=== PATIENT | male | born 1945 | race Caucasian/White ===

== ENCOUNTER 2022-11-03 10:56 | Emergency (ER) | payer MEDICARE, OTHER, SELFPAY ==
[2022-11-03] VITALS (9 sets, daily range): BP systolic 106–168; BP diastolic 63–88; PULSE 56–64; RESP 14–34; TEMP 36.7; O2SAT 95–99; BMI 25.0
--- NOTE | 2022-11-03 | DI.RAD.S_ITS ---
PROCEDURE: XR SACRUM COCCYX MIN 2V INDICATIONS: GLF TECHNIQUE: 3 views of the sacrum and coccyx acquired. COMPARISON: None. FINDINGS: Bones: No fractures or dislocations. No suspicious bony lesions. Soft tissues: Visualized bowel gas pattern is normal. No suspicious soft tissue densities. IMPRESSION: No displaced fracture. Dictated by: Rogelio Boss M.D. on 11/03/2022 at 11:12 Approved by: Rogelio Boss M.D. on 11/03/2022 at 11:17
--- NOTE | 2022-11-03 11:19 | DI.RAD.S_ITS ---
PROCEDURE: XR CHEST 1V INDICATIONS: chest pain TECHNIQUE: One view of the chest was acquired. COMPARISON: None. FINDINGS: Surgical changes and devices: Cardiac monitoring device overlies left chest. Surgical clips overlie the gastroesophageal junction Lungs and pleura: Lungs are clear. No pleural effusions or pneumothorax. Mediastinum: Mediastinal contours appear normal. Cardiomegaly. Bones and chest wall: No suspicious bony lesions. Overlying soft tissues appear unremarkable. Deformities of the posterior right 4th, 5th and 6th ribs without significant displacement. IMPRESSION: Rib fractures of unknown chronicity of the right 4th through 6th posterior ribs. No pneumothorax. Cardiomegaly. Dictated by: Rogelio Boss M.D. on 11/03/2022 at 11:09 Approved by: Rogelio Boss M.D. on 11/03/2022 at 11:11
--- NOTE | 2022-11-03 11:20 | DI.CT.S_ITS ---
PROCEDURE: CT CERVICAL SPINE WO CON INDICATIONS: modified trauma / ground level fall TECHNIQUE: Noncontrast 3 mm thick sections acquired from the skull base to the T4 level. Sagittal and coronal reformats were then constructed. For radiation dose reduction, the following was used: automated exposure control, adjustment of mA and/or kV according to patient size. COMPARISON: None. FINDINGS: Image quality: Excellent. Bones: No fractures or dislocations. Visualized superior ribs are intact. Postsurgical fixation of the right C3 through C7. Soft tissues: Prevertebral soft tissues are normal in thickness. No paravertebral hematomas. No apical pneumothoraces. Aortic ectasia measuring 3.7 cm. IMPRESSION: No cervical fracture. Mild aortic ectasia. Dictated by: Rogelio Boss M.D. on 11/03/2022 at 11:06 Approved by: Rogelio Boss M.D. on 11/03/2022 at 11:08
--- NOTE | 2022-11-03 11:20 | DI.CT.S_ITS ---
PROCEDURE: CT HEAD/BRAIN WO CON INDICATIONS: modified trauma/ ground level fall TECHNIQUE: Noncontrast 4.5 mm thick angled axial sections acquired from the foramen magnum to the vertex, with coronal and sagittal reformats. For radiation dose reduction, the following was used: automated exposure control, adjustment of mA and/or kV according to patient size. COMPARISON: None. FINDINGS: Image quality: Excellent. CSF spaces: Basal cisterns are patent. No extra-axial fluid collections. Mild expansion of the CSF containing spaces without evidence of obstruction. Brain: No midline shift. No intracranial masses or hemorrhage. Pitts-white matter interface is normal. Diffuse parenchymal volume loss with periventricular white matter hypodensities consistent with chronic microvascular ischemic disease. Skull and face: Calvarium and visualized facial bones are intact, without suspicious lesions. Small superficial contusion above the right supraorbital skull Sinuses: Visualized sinuses and mastoids are clear. IMPRESSION: No intracranial hemorrhage. Sequela of chronic microvascular ischemic disease. Dictated by: Rogelio Boss M.D. on 11/03/2022 at 11:03 Approved by: Rogelio Boss M.D. on 11/03/2022 at 11:05
[2022-11-03 11:41] LABS: Add Manual Diff / Slide Review NO; Basophils Absolute Auto 0 /uL (0-100); Basophils Percent Auto 0.6 % (0-2); Eosinophils Absolute Auto 200 /uL (0-450); Eosinophils Percent Auto 4.7 % (2-4); Hematocrit 37.2 % (41-53); Hemoglobin 12.9 g/dL (13.5-17.5); Lymphocytes Absolute Auto 700 /uL (1100-4500); Lymphocytes Percent Auto 14.4 % (25-40); Mean Corpuscular HGB Conc 34.6 % (30-36); Mean Corpuscular Hemoglobin 32.5 PG (26-34); Mean Corpuscular Volume 93.8 fL (80-100); Monocytes Absolute Auto 600 /uL (0-900); Monocytes Percent Auto 12.7 % (3-14); Neutrophils Absolute Auto 3400 /uL (1500-7000); Neutrophils Percent Auto 67.6 % (50-75); Platelet Count 176 X10^3/uL (150-400); Red Blood Cell Count 3.96 X10^6/uL (4.5-5.9); Red Cell Distribution Width 13.1 % (11.6-14.8); White Blood Cell Count 5.1 X10^3/uL (4.5-11.0)
[2022-11-03 11:44] LABS: INR 1.1 (0.9-1.3); Prothrombin Time 12.1 SECONDS (10.1-12.7)
[2022-11-03 11:47] LABS: PTT Partial Thromboplastin Tim 24 SECONDS (26-36)
[2022-11-03 11:48] LABS: Alanine Aminotransferase 25 IU/L (<50); Albumin 4.1 g/dL (3.5-5.0); Albumin Globulin Ratio 1.4 (1.0-2.8); Alkaline Phosphatase 69 U/L (38-126); Aspartate Aminotransferase 36 IU/L (17-59); BUN Creatinine Ratio 18.7 (6-22); Bilirubin Total 0.5 mg/dL (0.2-1.3); Blood Urea Nitrogen 14 mg/dL (9-20); Calcium 8.5 mg/dL (8.4-10.2); Carbon Dioxide 24 mmol/L (22-32); Chloride 104 mmol/L (98-107); Creatine Kinase 68 U/L (55-170); Estimated Glomerular Filt Rate > 60 mL/min (>60); Glucose 104 mg/dL (80-110); HEMOLYSIS < 15 (0-50); Lipase 115 U/L (23-300); Magnesium 2.1 mg/dL (1.6-2.3); Potassium 4.5 mmol/L (3.4-5.1); Sodium 135 mmol/L (137-145); Total Protein 7.1 g/dL (6.3-8.2)
[2022-11-03 11:59] LABS: Troponin I < 0.012 ng/mL (0.01-0.034)
--- NOTE | 2022-11-03 13:48 | ED_ITS ---
HPI - Trauma General Chief Complaint: Trauma Stated Complaint: GLF Time Seen by Provider: 11/03/22 11:15 Source: patient and EMS Mode of arrival: EMS Limitations: no limitations History of Present Illness HPI narrative: This is a 77-year-old with history of dysphoria, GERD, cervical spinal stenosis and repair who presents with ground level fall. Patient states he was walking backwards down a gang way at the [employer] he had a wheelbarrow stuff that he was backing down. The wheelbarrow was actually behind him and got away from him and he fell backwards hitting his face and head. No reported loss of consciousness. He denies any neck pain. No chest pain or shortness of breath. He is had some mild nausea no vomiting. No dizziness or vertigo. States his sacrum is a little bit uncomfortable but not particularly painful. He denies any loss of bowel or bladder control. No weakness, numbness or tingling in his extremities. He is unsure if he walked afterwards. He states he did seem to have some memory issues immediately afterwards but states he feels much improved now. He is not on any aspirin, Plavix or other anticoagulants he states he takes Effexor, Lamictal daily for dysphoria and not for seizures, statin. Patient states he is had surgery for cervical spinal stenosis remotely. He is allergic to penicillin. No tobacco, 1 alcoholic drink daily, none today. No illicit or recreational drugs. Splits his time between [place] and [facility]. His primary care is at [facility] in [place]. Patient was noted to have some aortic ectasia on his C-spine, is not aware of any history. He does note he had rib fractures on the right side in the past. He states no pain in his rib or chest today. Related Data Home Medications Medication Instructions Recorded Confirmed dorzolamide 2 % eye drops 1 drp EYE-BOTH BEDTIME 11/03/22 11/03/22 dorzolamide 22.3 mg-timolol 6.8 1 drp EYE-BOTH BID 11/03/22 11/03/22 mg/mL eye drops famotidine 20 mg tablet 20 mg PO 3XD 11/03/22 11/03/22 lamotrigine 200 mg tablet 200 mg PO DAILY 11/03/22 11/03/22 omega-3 acid ethyl esters 1 gram 1 cap PO DAILY 11/03/22 11/03/22 capsule rosuvastatin 20 mg tablet 20 mg PO ONCE PM 11/03/22 11/03/22 travoprost 0.004 % eye drops 1 drp EYE-BOTH ONCE PM 11/03/22 11/03/22 venlafaxine 75 mg capsule,extended 75 mg PO DAILY 11/03/22 11/03/22 release 24 hr Allergies Allergy/AdvReac Type Severity Reaction Status Date / Time Penicillins Allergy Unknown Verified 11/03/22 11:19 Review of Systems Review of Systems ROS Unobtainable: All systems reviewed & are unremarkable except as noted in HPI and below Patient History Medical History Frequent falls GERD (gastroesophageal reflux disease) Glaucoma High cholesterol Subdural hematoma Social History Smoking Status: Never smoker Smoking Status: Never smoker alcohol intake frequency: 0-2 drinks per day Substance Use Type: does not use Exam Narrative Exam Narrative: GEN: Patient appears in mild distress. HEAD: Patient has multiple abrasions on his midline posterior and right parietal scalp. There is 1 laceration not particularly deep but does continue to ooze and is slightly gapped, in his approximately cm in length., no raccoon/Hwang sign. NECK: Nontender, painless range of motion, trachea midline Negative Nexus criteria, there is no midline line tenderness, distracting injury, altered mental status, neuro deficit, recent EtOH. EYES: PERRLA, EOMI ENT: External inspection normal except for a laceration at the right upper cheek over the crows lines, does not involve the eye or the lid itself, does gape when pulled., trachea is midline, TM's are normal no hemotypanum, Nares are clear, no septal hematoma, no dental or oral injury, airway is normal and with normal occlusion, No bony tenderness RESP: Chest is nontender and has symmetric movement, no ecchymosis, breath sounds are normal no crackles, wheezes or rales CVS: Heart sounds are normal, no murmur noted, No JVD. ABG/GI: Nontender, soft, normal bowel sounds, no distention, no organomegaly, pelvic rock is negative. NEURO: Oriented AOx3, neuro is grossly intact, sensation and motor is normal all 4 extremities moving, cranial nerves II through XII are intact, GCS is 15 PSYCH: Normal mood and affect SKIN: Patient has some abrasions right shoulder and upper back. warm and dry, no crepitus and without decubitus BACK: No CVA tenderness, no vertebral tenderness, no step-off's, no crepitus EXT: Atraumatic, hips are nontender, no pedal edema, normal color and temperature, normal range of motion of extremities with normal tendon exam, 2+ pulses in all four extremities Initial Vital Signs Initial Vital Signs: Vital Signs Temperature 98.1 F 11/03/22 11:00 Pulse Rate 56 L 11/03/22 11:00 Respiratory Rate 14 11/03/22 11:00 Blood Pressure 168/88 H 11/03/22 11:00 Pulse Oximetry 99 11/03/22 11:00 Oxygen Delivery Method Room Air 11/03/22 11:00 Procedures Laceration Repair Laceration 1: Site: face Side (If applicable): right Size (cm): 1.5 Description: flap, irregular and clean Depth: involves muscle layer Local Anesthetic: lidocaine 1% Amount of anesthesia used (mL): 2 Pre-repair: wound explored, irrigated extensively and deep structures intact Skin layer closed with: vicryl Skin layer suture size: 5-0 Number of sutures: 4 Technique: simple, interrupted Laceration 2: Site: scalp Side (If applicable): right Size (cm): 1 Description: linear Depth: simple, single layer Local Anesthetic: lidocaine 1% Amount of anesthesia used (mL): 2 Pre-repair: wound explored, irrigated extensively and deep structures intact Skin layer closed with: iron Number of sutures: 1 Technique: other (staple) Course Orders Ordered: ED Orders 11/03/22 11:15 Complete Blood Count AUTO DIFF Stat Comprehensive Metabolic Panel Stat Lamotrigine Lamictal Stat Lipase Stat Magnesium Stat PTT Partial Thromboplastin Benjamin Stat Prothrombin Time INR Stat Troponin & CK Cardiac Panel Stat 11/03/22 11:19 XR chest 1V Stat EKG-12 Lead Stat 11/03/22 11:20 CT cervical spine wo con Stat CT head/brain wo con Stat Discontinued Medications Diphtheria/Tetanus/Acell Pertussis (Tet,Diph,Pertuss(Acell),Vac/Pf 0.5 Ml Syringe) 0.5 ml IM .ONCE ONE Stop: 11/03/22 14:18 Last Admin: 11/03/22 14:31 Dose: 0.5 ml Documented By: CHRISS Lidocaine HCl (Lidocaine 2% Inj Sdv 5ml) 5 ml INJ INTRA-OP ONE Stop: 11/03/22 14:18 Last Admin: 11/03/22 14:33 Dose: 5 ml Documented By: CHRISS Vital Signs Vital signs: Vital Signs - 8 hr 11/03/22 12:44 11/03/22 12:45 11/03/22 12:45 Pulse Rate 60 61 Respiratory Rate 16 19 Blood Pressure 133/66 Pulse Oximetry 96 96 Oxygen Delivery Method 11/03/22 13:00 11/03/22 13:00 11/03/22 13:30 Pulse Rate 60 63 Respiratory Rate 20 34 H Blood Pressure 131/66 Pulse Oximetry 97 Oxygen Delivery Method Room Air 11/03/22 14:00 11/03/22 14:30 11/03/22 14:46 Pulse Rate 63 64 Respiratory Rate 20 26 H Blood Pressure 106/63 Pulse Oximetry 97 96 Oxygen Delivery Method 11/03/22 14:46 11/03/22 15:00 11/03/22 15:00 Pulse Rate 63 64 Respiratory Rate 26 H 27 H Blood Pressure 117/66 Pulse Oximetry 96 95 Oxygen Delivery Method MDM - Trauma Lab Data 11/03/22 11:15 11/03/22 11:15 Labs: Lab Results 11/03/22 11/03/22 11/03/22 Range/Units 11:15 11:15 11:15 WBC 5.1 (4.5-11.0) X10^3/uL RBC 3.96 L (4.5-5.9) X10^6/uL Hgb 12.9 L (13.5-17.5) g/dL Hct 37.2 L (41-53) % MCV 93.8 (80-100) fL MCH 32.5 (26-34) PG MCHC 34.6 (30-36) % RDW 13.1 (11.6-14.8) % Plt Count 176 (150-400) X10^3/uL Neut % (Auto) 67.6 (50-75) % Lymph % (Auto) 14.4 L (25-40) % [place] % (Auto) 12.7 (3-14) % Eos % (Auto) 4.7 H (2-4) % Baso % (Auto) 0.6 (0-2) % Neut # (Auto) 3400 (9881-8371) /uL Lymph # (Auto) 700 L (0707-0297) /uL [place] # (Auto) 600 (0-900) /uL Eos # (Auto) 200 (0-450) /uL Baso # (Auto) 0 (0-100) /uL PT 12.1 (10.1-12.7) SECONDS INR 1.1 (0.9-1.3) APTT 24 L (26-36) SECONDS Sodium 135 L (137-145) mmol/L Potassium 4.5 (3.4-5.1) mmol/L Chloride 104 (98-107) mmol/L Carbon Dioxide 24 (22-32) mmol/L BUN 14 (9-20) mg/dL Creatinine 0.75 (0.66-1.25) mg/dL Estimated GFR > 60 (>60) mL/min BUN/Creatinine Ratio 18.7 (6-22) Glucose 104 (80-110) mg/dL Calcium 8.5 (8.4-10.2) mg/dL Magnesium 2.1 (1.6-2.3) mg/dL Total Bilirubin 0.5 (0.2-1.3) mg/dL AST 36 (17-59) IU/L ALT 25 (<50) IU/L Alkaline Phosphatase 69 (38-126) U/L Total Creatine Kinase 68 (55-170) U/L Troponin I < 0.012 (0.01-0.034) ng/mL Total Protein 7.1 (6.3-8.2) g/dL Albumin 4.1 (3.5-5.0) g/dL Globulin 3.0 (1.7-4.1) g/dL Albumin/Globulin Ratio 1.4 (1.0-2.8) Lipase 115 (23-300) U/L Imaging Data CT scan - head: Radiologist's Impression: Close Head CT (Signed) Rogelio Boss - 11/03/[address] (Signed) Rogelio Boss - 11/03/22 Chest X-Ray (Signed) Rogelio Boss - 11/03/22 Sacrum and Coccyx X-Ray (Signed) Rogelio Boss - 11/03/22 Launch?[facility] [address] [address] [address] Scan Report Signed Patient: Ahsan Salomon MR#: [id number] : 1945 Acct:[id number] Age/Sex: 77 / M Date of Service: 11/03/22 Loc: ED Accession Number: [id number] ?? Procedure: CT head/brain wo con Ordering Provider: Vero Liu D.O. PROCEDURE:? CT HEAD/BRAIN WO CON ? INDICATIONS:? modified trauma/ ground level fall ? TECHNIQUE:? Noncontrast 4.5 mm thick angled axial sections acquired from the foramen magnum to the vertex, with coronal and sagittal reformats.? For radiation dose reduction, the following was used:? automated exposure control, adjustment of mA and/or kV according to patient size.? ? COMPARISON:? None. ? FINDINGS:? Image quality:? Excellent.? ? CSF spaces:? Basal cisterns are patent.? No extra-axial fluid collections.? Mild expansion of the CSF containing spaces without evidence of obstruction. ? Brain:? No midline shift.? No intracranial masses or hemorrhage.? Pitts-white matter interface is normal.? Diffuse parenchymal volume loss with periventricular white matter hypodensities consistent with chronic microvascular ischemic disease. ? Skull and face:? Calvarium and visualized facial bones are intact, without suspicious lesions.? Small superficial contusion above the right supraorbital skull ? Sinuses:? Visualized sinuses and mastoids are clear.? ? IMPRESSION:? No intracranial hemorrhage. ? Sequela of chronic microvascular ischemic disease.? ? Dictated by: Rogelio Boss M.D. on 11/03/2022 at 11:03 ? ? Approved by: Rogelio Boss M.D. on 11/03/2022 at 11:05?? CT - cervical spine: Radiologist's Impression: [address] [address] [address] Scan Report Signed Patient: Ahsan Salomon MR#: [id number] : 1945 Acct:[id number] Age/Sex: 77 / M Date of Service: 11/03/22 Loc: ED Accession Number: [id number] ?? Procedure: CT cervical spine wo con Ordering Provider: Vero Liu D.O. PROCEDURE:? CT CERVICAL SPINE WO CON ? INDICATIONS:? modified trauma / ground level fall ? TECHNIQUE:? Noncontrast 3 mm thick sections acquired from the skull base to the T4 level.? Sagittal and coronal reformats were then constructed.? For radiation dose reduction, the following was used:? automated exposure control, adjustment of mA and/or kV according to patient size.? ? COMPARISON:? None. ? FINDINGS:? Image quality:? Excellent.? ? Bones:? No fractures or dislocations.? Visualized superior ribs are intact.? Postsurgical fixation of the right C3 through C7. ? Soft tissues:? Prevertebral soft tissues are normal in thickness.? No paravertebral hematomas.? No apical pneumothoraces.? Aortic ectasia measuring 3.7 cm. ? ? IMPRESSION:? No cervical fracture. Mild aortic ectasia. ? ? ? Dictated by: Rogelio Boss M.D. on 11/03/2022 at 11:06 ? ? Approved by: Rogelio Boss M.D. on 11/03/2022 at 11:08?? Chest x-ray: Radiologist's Impression: [place] [address] XRay Report Signed Patient: Ahsan Salomon MR#: [id number] : 1945 Acct:[id number] Age/Sex: 77 / M Date of Service: 11/03/22 Loc: ED Accession Number: [id number] ?? Procedure: XR chest 1V Ordering Provider: Vero Liu D.O. PROCEDURE:? XR CHEST 1V ? INDICATIONS:? chest pain ? TECHNIQUE:? One view of the chest was acquired.? ? COMPARISON:? None. ? FINDINGS:? ? Surgical changes and devices:? Cardiac monitoring device overlies left chest.? Surgical clips overlie the gastroesophageal junction ? Lungs and pleura:? Lungs are clear.? No pleural effusions or pneumothorax.? ? Mediastinum:? Mediastinal contours appear normal.? Cardiomegaly. ? Bones and chest wall:? No suspicious bony lesions.? Overlying soft tissues appear unremarkable.? Deformities of the posterior right 4th, 5th and 6th ribs without significant displacement. ? IMPRESSION:? Rib fractures of unknown chronicity of the right 4th through 6th posterior ribs. No pneumothorax. Cardiomegaly.? ? Dictated by: Rogelio Boss M.D. on 11/03/2022 at 11:09 ? ? Approved by: Rogelio Boss M.D. on 11/03/2022 at 11:11?? sacrum xray: Radiologist's Impression: Ahsan Salomon??77??M??1945 ? Allergy/Adv: Penicillins Close Head CT (Signed) Rogelio Boss - 11/03/[address] (Signed) Rogelio Boss - 11/03/22 Chest X-Ray (Signed) Rogelio Boss - 11/03/22 Sacrum and Coccyx X-Ray (Signed) Rogelio Boss - 11/03/22 Launch?[place] [address] XRay Report Signed Patient: Ahsan Salomon MR#: [id number] : 1945 Acct:[id number] Age/Sex: 77 / M Date of Service: 11/03/22 Loc: ED Accession Number: [id number] ?? Procedure: XR sacrum coccyx min 2V Ordering Provider: Vero Liu D.O. PROCEDURE:? XR SACRUM COCCYX MIN 2V ? INDICATIONS:? GLF ? TECHNIQUE:? 3 views of the sacrum and coccyx acquired.? ? COMPARISON:? None. ? FINDINGS:? ? Bones:? No fractures or dislocations.? No suspicious bony lesions.? ? Soft tissues:? Visualized bowel gas pattern is normal.? No suspicious soft tissue densities.? ? IMPRESSION:? No displaced fracture. ? ? Dictated by: Rogelio Boss M.D. on 11/03/2022 at 11:12 ? ? Approved by: Rogelio Boss M.D. on 11/03/2022 at 11:17?? ECG Data Attestation: I personally reviewed and interpreted this ECG as follows: Prior ECG tracings: not available for review Interpretation: Sinus bradycardia rate of 50 6p are 204 QRS of 110 QTC of 4 or 5. No acute ST elevation. Left axis deviation. NO priors. 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 Patient's head CT is negative C- spine is negative but does show some mild aortic ectasia at 3.7 cm. Chest x-ray shows 4-6 right-sided posterior rib fracture. Patient notes prior fractures in his nontender today. Patient's labs overall reassuring hemoglobin is 12.9 no priors for comparison. Patient appears hemodynamically stable. CMP, coags, LFTs and troponin are negative. Lamotrigine level was sent but is pending. Reviewed all findings with patient he states he does not have any chest pain or tenderness, he does recall having fractures in his chest and states this feels nothing like that. Does have some abrasions on that side but can not reproduce pain. Tetanus was updated, patient has several abrasions on his scalp one is still oozing a little bit an little bit deeper/small laceration so had iron placed. Patient also has a laceration at the right cheek and was repaired. Patient was ambulated in the department without issue. Discharge Plan Departure Patient Disposition: Home Clinical Impression: Facial laceration, Laceration of scalp, Fall, Aortic ectasia, Concussion Instructions: DI for Concussion Activity Restrictions/Additional Instructions: Follow-up with your physician. New or concerning changes regarding your findings today. Leopold should be removed in 7-10, the sutures in your face are absorbable. Your imaging did find some aortic ectasia, your aorta was dilated at 3.7 cm this was seen on the CT C-spine today. Copy of your images and labs were included. Your chest x-ray does show posterior rib fractures on the right, ribs 4 through 6 but suspect these are old. Your tetanus was updated today. Please return for severe headaches, altered mental status, new chest pain or shortness of breath, new neck or back pain, loss of bowel or bladder control, vomiting or other Prescriptions: No Action venlafaxine 75 mg capsule,extended release 24hr 75 mg PO DAILY lamotrigine 200 mg tablet 200 mg PO DAILY travoprost 0.004 % drops 1 drp EYE-BOTH ONCE PM famotidine 20 mg tablet 20 mg PO 3XD dorzolamide-timolol 22.3-6.8 mg/mL drops 1 drp EYE-BOTH BID Patient Comments: [NO ORIGINAL SIG] dorzolamide 2 % drops 1 drp EYE-BOTH BEDTIME rosuvastatin 20 mg tablet 20 mg PO ONCE PM omega-3 acid ethyl esters 1 gram capsule 1 cap PO DAILY Stand Alone Forms: Patient Portal/API
[2022-11-03] MEDS: TET,DIPH,PERTUSS(ACELL),VAC/PF 0.5 ML SYRINGE IM (14:31)
[2022-11-03] MEDS: LIDOCAINE 2% INJ SDV 5ML 5 ML INJ (14:33)
[2022-11-06 13:10] LABS: Lamotrigine Lamictal <1.0 ug/mL (2.0-20.0)
== END 2022-11-03 15:47 | disposition home or self-care (01) ==
PROVIDERS: Emergency Provider Emergency Medicine
DX: S06.0X0A Concussion without loss of consciousness, initial encounter (principal); S01.01XA Laceration without foreign body of scalp, initial encounter; S01.81XA Laceration without foreign body of other part of head, initial encounter; I77.819 Aortic ectasia, unspecified site; R07.9 Chest pain, unspecified; W18.30XA Fall on same level, unspecified, initial encounter; Z23 Encounter for immunization
CPT/HCPCS: 12001; 13131; 36415; 70450; 71045; 72125; 72220; 80053; 80175; 82550; 83690; 83735; 84484; 85025; 85610; 85730; 90471; 93005; 93010; 99284; 90715